=== PATIENT | male | born 1960 ===

== ENCOUNTER 2018-11-05 07:32 | Outpatient (CLI) | payer OTHER ==
[~2018-11-05] VITALS: Ht 185.4 cm; Wt 132.9 kg
[2018-11-05] MEDS ORDERED: FLONASE16 GM NASAL (09:48)
[2018-11-05] MEDS ORDERED: MUCINEX600 MG PO (09:48)
[2018-11-05] MEDS ORDERED: AMOX-CLAV 875-1 EACH PO (09:48)
== END 2018-11-05 07:45 | disposition home or self-care (01) ==
LOC: OFIC 805 07:32
DX: H65.03 Acute serous otitis media, bilateral (principal); H90.0 Conductive hearing loss, bilateral; J31.0 Chronic rhinitis; E66.8 Other obesity